=== PATIENT | female | born 2000 | race Caucasian/White ===

== ENCOUNTER 2022-12-17 00:09 | Emergency (ER) | payer BC ==
[2022-12-17] MEDS ORDERED: Lidocaine 1% MPF 2 ML VIAL ONE ×2 (00:38→01:01)
== END 2022-12-17 02:10 | disposition home or self-care (01) ==
LOC: ERS 00:09
DX: S92.532A Displaced fracture of distal phalanx of left lesser toe(s), initial encounter for closed fracture (principal); W26.9XXA Contact with unspecified sharp object(s), initial encounter
CPT/HCPCS: 28515